=== PATIENT | female | born 1995 | race Caucasian/White ===

== ENCOUNTER 2019-06-08 17:49 | Emergency (ER) | payer SELFPAY ==
[~2019-06-08] VITALS: Wt 68.0 kg
[~2019-06-08 17:49] MED LIST: ACET325T33 PO
--- NOTE | 2019-06-08 17:53 | EN ---
Date/Time of Note Date/Time of Note DATE: 06/08/19 TIME: 17:53 ER Progress Note 24-year-old female is 17 weeks with back pain. Urinalysis and OB ultrasound ordered. Work-up initiated in triage DAVID HODGES PA-C Jun 08, 2019 17:53
[2019-06-08 19:40] VITALS: BP 122/64; PULSE 88; RESP 16
--- NOTE | 2019-06-08 20:19 | ERD ---
ER Documentation Chief Complaint Chief Complaint BACK PAIN , 17 WEEKS , NO BLEEDING HPI 24-year-old female who is G1, P0, last menstrual cycle of February 09, 2019, presenting to the emergency department complaining of low back pain in the midline region for the past 2 days. She denies any heavy lifting, falls, trauma, or bending injuries. Her current pain is rated 8/10 in severity, without radiation, without exacerbating factors. She took no medication for relief. She denies any other symptoms. ROS All systems reviewed and are negative except as per history of present illness. Medications Home Meds Active Scripts Acetaminophen* (Tylenol*) 325 Mg Tablet, 2 TAB PO Q6 PRN for PAIN AND OR ELEVATED TEMP, #20 TAB Prov:CHAYO MORAN PA-C 06/08/19 Allergies Allergies: Coded Allergies: No Known Allergy (Unverified , 06/08/19) PMhx/Soc Medical and Surgical Hx: pt denies Medical Hx, pt denies Surgical Hx Hx Alcohol Use: No Hx Substance Use: No Hx Tobacco Use: No Smoking Status: Never smoker FmHx Family History: No diabetes Physical Exam Vitals Vital Signs Date Temp Pulse Resp B/P (MAP) Pulse Ox O2 O2 Flow FiO2 Time Delivery Rate 06/08/19 98.3 88 16 122/64 99 19:40 (83) 06/08/19 97.8 61 18 127/61 99 17:52 (83) Physical Exam Const: No acute distress Head: Atraumatic Eyes: Normal Conjunctiva ENT: Normal External Ears, Nose and Mouth. Neck: Full range of motion. No meningismus. Resp: Clear to auscultation bilaterally Cardio: Regular rate and rhythm, no murmurs Abd: Soft, non tender, non distended. Normal bowel sounds. No rebound tenderness or guarding. No McBurney's point tenderness. No tenderness palpation of the suprapubic region. Skin: No petechiae or rashes back Exam: Subjective tenderness palpation of the midline lumbar spine. No step-offs. Skin: No bruising or rash Compartments: Soft Motor: Normal flexion and extension of bilateral hip/knee/ankle/foot Sensation: Intact to light touch throughout Ext: No cyanosis, or edema Neur: Awake and alert Psych: Normal Mood and Affect Results 24 hrs Laboratory Tests Test 06/08/19 19:18 06/08/19 19:20 Urine Color YELLOW Urine Clarity SLIGHTLY CLOUDY Urine pH 6.0 Urine Specific [place] 1.015 Urine Ketones NEGATIVE mg/dL Urine Nitrite NEGATIVE mg/dL Urine Bilirubin NEGATIVE mg/dL Urine Urobilinogen NEGATIVE mg/dL Urine Leukocyte Esterase NEGATIVE Becky/ul Urine Microscopic RBC 1 /HPF Urine Microscopic WBC 1 /HPF Urine Squamous Epithelial Cells FEW /HPF Urine Bacteria FEW /HPF Urine Hemoglobin NEGATIVE mg/dL Urine Glucose NEGATIVE mg/dL Urine Total Protein NEGATIVE mg/dl Bedside Urine pH (LAB) 6.0 Bedside Urine Protein (LAB) Negative Bedside Urine Glucose (UA) Negative Bedside Urine Ketones (LAB) Negative Bedside Urine Blood Negative Bedside Urine Nitrite (LAB) Negative Bedside Urine Leukocyte Esterase (L Negative [place] [address] Radiology Main Line: [phone] DIAGNOSTIC IMAGING REPORT Patient: CHRISTOPHER BLUM : 1995 Age: 24 Sex: F MR #: [id number] DOS: 06/08/19 0000 Ordering MD: DAVID HODGES PA-C Location: [facility] Room/Bed: PROCEDURE: US OB. CLINICAL INDICATION: Size and dates , back pain TECHNIQUE: Multiple sonographic images of the pelvis and gravid uterus were obtained. The images were reviewed on a PACS workstation. COMPARISON: No prior studies are available for comparison. FINDINGS: The cervix measures 3.1 cm in length. Gestation: Single live intrauterine gestation. Cardiac activity: 161 beats per minute. Presentation: Breech Placenta: Location: Anterior. Appearance: No previa or abruption. MVP = 4.3 cm Measurements: BPD = 3.9 cm, 17 weeks and 5 days HC = 14.7 cm, 17 weeks and 6 days AC = 13.3 cm, 18 weeks and 6 days FL = 2.7 cm, 18 weeks and 1 day Gestational Age: AUA estimated gestational age: 18 weeks 1 day LMP estimated gestational age: 17 weeks 6 days AUA estimated date of delivery: 11/08/19 The EFW = 239 g, 79.5%ile based on LMP age. The ovaries are normal in size and echogenicity. There is a 1.3 cm simple cyst in the right ovary. There is normal Doppler flow in the ovaries. The right ovary measures 3.7 x 2.3 x 2.8 cm. The left ovary measures 4.6 x 1.4 x 2.7 cm. RPTAT: AA IMPRESSION: Single live intrauterine gestation of 18 weeks 1 day by ultrasound criteria. .John Banks MD, MD Date Time Electronically viewed and signed by .John Banks MD, MD on 06/08/2019 18:19 .S/ CC: DAVID HODGES PA-C [id number] Procedures/MDM 24-year-old female presenting to the emergency department complaining of mid lumbar back pain for the past 2 days. Patient is reportedly . Pelvic ultrasound revealed live intrauterine with heart tones present. The full report interpreted by the radiologist may be viewed above. Medical decision making: I suspect a musculoskeletal etiology. Much lower suspicion for pyelonephritis, disc herniation, cauda equina, infectious etiology, or other emergent process. Patient will be discharged home in stable condition with a prescription for Tylenol. She is advised to return here immediately for any new or concerning symptoms. Shared my medical decision making with the patient and she understands and agrees with plan. Her questions and concerns were addressed prior to discharge. Departure Diagnosis: Primary Impression: Back pain Condition: Fair Patient Instructions: Back Pain (Acute Or Chronic) Referrals: [facility] YOU HAVE RECEIVED A MEDICAL SCREENING EXAM AND THE RESULTS INDICATE THAT YOU DO NOT HAVE A CONDITION THAT REQUIRES URGENT TREATMENT IN THE EMERGENCY DEPARTMENT. FURTHER EVALUATION AND TREATMENT OF YOUR CONDITION CAN WAIT UNTIL YOU ARE SEEN IN YOUR DOCTORS OFFICE WITHIN THE NEXT 1-2 DAYS. IT IS YOUR RESPONSIBILITY TO MAKE AN APPOINTMENT FOR FOLOW-UP CARE. IF YOU HAVE A PRIMARY DOCTOR --you should call your primary doctor and schedule an appointment IF YOU DO NOT HAVE A PRIMARY DOCTOR YOU CAN CALL OUR PHYSICIAN REFERRAL HOTLINE AT IF YOU CAN NOT AFFORD TO SEE A PHYSICIAN YOU CAN CHOSE FROM THE FOLLOWING [facility] [address] [facility]. [facility] [address] [facility] [facility] [address] [facility] [address] [facility] [address] [facility]. [facility]. [address] Additional Instructions: Call your primary care doctor TOMORROW for an appointment during the next 1-2 days.See the doctor sooner or return here if your condition worsens before your appointment time. CHAYO MORAN PA-C Jun 08, 2019 20:19
== END 2019-06-08 19:42 | disposition home or self-care (01) ==
LOC: FTE 17:49
DX: O99.89 Other specified diseases and conditions complicating pregnancy, childbirth and the puerperium (principal); M54.5 Low back pain; Z3A.17 17 weeks gestation of pregnancy
CPT/HCPCS: 76805; 81001; 81003; 87086; 99284